=== PATIENT | male | born 1970 | race Caucasian/White ===

== ENCOUNTER → 2021-03-29 | Outpatient (REF) ==
--- NOTE | 2021-03-29 19:18 | REP ---
INDICATION: DDD. COMPARISON: Comparison lumbar spine radiographs are from June 21, 2015.. TECHNIQUE: AP lateral and lateral spot views are obtained. FINDINGS: Lumbar vertebral body heights are preserved. Alignment is normal. Pedicles and posterior elements are intact. There is no evidence of spondylolysis or spondylolisthesis. There is degenerative narrowing of the L4-5 and L5-S1 disc spaces with mild discogenic spurring anteriorly, particularly at L5-S1. This is unchanged. Psoas margins are symmetric. Sacrum and SI joints are intact. There is mild facet hypertrophy bilaterally at L4-5 and L5-S1 unchanged. IMPRESSION: Mild degenerative spondylosis changes as noted above. Radiographically stable from June 21, 2015. <Electronically signed by Jareth Perez > 03/29/21 [id number]
== END ==
LOC: M RAD 12:05
PROVIDERS: ATTEND Internal Medicine
DX: M54.5 Low back pain (principal)

== ENCOUNTER → 2022-04-01 | Day surgery (SDC) | payer OTHER ==
[~2022-04-01] VITALS: Ht 177.8 cm; Wt 96.6 kg
[~2022-04-01] MED LIST: ALBU8.5H INH; AMOX500T2 PO; ATOR40TA75 PO; BACITRACIN OINTMENT 30GM TUBE As Ordered ONE; BASA100I SC; BAYE81TA10 PO; FARX1TAB3 PO; GABA-1171 PO; JANU25TA PO; KETOROLAC 60MG 2ML VIAL As Ordered ONE; LIDOCAINE 2% 100MG/5ML SDV (FOR ANES.) As Ordered ONE; LIDOCAINE W/EPINEPHRINE 1% 20ML VIAL As Ordered ONE; LISI5TAB11 PO; LOSA50TA28 PO; LR 1,000 ML IV ONE; METF850T4 PO; METOCLOPRAMIDE INJ 10MG/2ML VIAL (J2765 PER 1) As Ordered ONE; MIDAZOLAM INJ 2MG/2ML VIAL (J2250 PER 1MG) As Ordered ONE; ONDANSETRON 4MG/2ML VIAL As Ordered ONE; SUCCINYLCHOLINE 100 MG/5 ML SYRINGE (J0330) As Ordered ONE; dexameTHASONE 4 MG/ML 1ML VIAL (J1100 PER 1MG) As Ordered ONE; fentaNYL 100 MCG/2 ML INJECTION As Ordered ONE; propofoL 200 MG/20 ML VIAL As Ordered ONE
[2022-04-01 13:32] VITALS: BP 136/78
== END | disposition home or self-care (01) ==
LOC: M SDC 08:47 → M LAB 08:47 → EDSTATUS 10:15
PROVIDERS: ATTEND Otolaryngology
DX: D17.0 Benign lipomatous neoplasm of skin and subcutaneous tissue of head, face and neck (principal); I10 Essential (primary) hypertension; E78.00 Pure hypercholesterolemia, unspecified; M48.00 Spinal stenosis, site unspecified; M19.90 Unspecified osteoarthritis, unspecified site; F17.210 Nicotine dependence, cigarettes, uncomplicated; Z79.899 Other long term (current) drug therapy; Z79.82 Long term (current) use of aspirin; Z79.4 Long term (current) use of insulin; Z79.84 Long term (current) use of oral hypoglycemic drugs
CPT/HCPCS: 11420; 88304; J0330; J1100; J1885; J2250; J2405; J2765; J3010

== ENCOUNTER → 2022-05-14 | Outpatient (REF) | payer OTHER ==
[~2022-05-14] MED LIST changes: -BACITRACIN OINTMENT 30GM TUBE As Ordered ONE; -KETOROLAC 60MG 2ML VIAL As Ordered ONE; -LIDOCAINE 2% 100MG/5ML SDV (FOR ANES.) As Ordered ONE; -LIDOCAINE W/EPINEPHRINE 1% 20ML VIAL As Ordered ONE; -LR 1,000 ML IV ONE; -METOCLOPRAMIDE INJ 10MG/2ML VIAL (J2765 PER 1) As Ordered ONE; -MIDAZOLAM INJ 2MG/2ML VIAL (J2250 PER 1MG) As Ordered ONE; -ONDANSETRON 4MG/2ML VIAL As Ordered ONE; -SUCCINYLCHOLINE 100 MG/5 ML SYRINGE (J0330) As Ordered ONE; -dexameTHASONE 4 MG/ML 1ML VIAL (J1100 PER 1MG) As Ordered ONE; -fentaNYL 100 MCG/2 ML INJECTION As Ordered ONE; -propofoL 200 MG/20 ML VIAL As Ordered ONE
[2022-05-14 17:51] LABS: MAU/CREAT RATIO 297.3 MCG/MG (0.0-30.0)
== END ==
LOC: M LAB REF 16:59
PROVIDERS: ATTEND Nurse Practitioner Family
DX: E11.65 Type 2 diabetes mellitus with hyperglycemia (principal)

== ENCOUNTER → 2022-11-07 | Outpatient (CLI) | payer OTHER | LOC: M RAD 07:11 | PROVIDERS: ATTEND Family Medicine | DX: Z12.2 Encounter for screening for malignant neoplasm of respiratory organs (principal); F17.210 Nicotine dependence, cigarettes, uncomplicated; R91.8 Other nonspecific abnormal finding of lung field ==

== ENCOUNTER → 2024-05-11 | Outpatient (REF) ==
[~2024-05-11] MED LIST changes: +NOXI1TAB PO; +TRUL0.5I SQ; +VITA1CHW7 PO
== END ==
LOC: M PLAIMG 14:31
PROVIDERS: ATTEND Internal Medicine
DX: M51.36 Other intervertebral disc degeneration, lumbar region (principal); M54.50 Low back pain, unspecified